=== PATIENT | female | born 1985 | race Two or more races ===

== ENCOUNTER → 2017-03-09 | Outpatient (CLI) | payer OTHER | LOC: FIMAGING 07:27 | PROVIDERS: ATTEND Advanced Practice Midwife | DX: O35.1XX0 Maternal care for (suspected) chromosomal abnormality in fetus, not applicable or unspecified (principal); Z3A.20 20 weeks gestation of pregnancy ==

== ENCOUNTER 2017-05-02 13:00 | Observation (INO) | payer OTHER ==
--- NOTE | 2017-05-02 16:10 | GHP ---
[f rep st] PREOP HISTORY AND PHYSICAL DATE OF ADMISSION: 05/02/2017 ADMITTING DIAGNOSIS: Intrauterine at 28 and 3/7 weeks gestation with decreased movem ent. HISTORY OF PRESENT ILLNESS: Sherin is a 32-year-old, 1, para 0, at 28 and 3/7 weeks gestation wh o presented to Labor and Delivery because of concerns for decreased movement. She started coun ting movements today and only has felt 1 this morning and was concerned. She denies leakage of fluid , vaginal bleeding, cramping, or any other issues. On presentation, heart tones were in the 14 0s and reactive, moderate variability, appropriate for gestational age. She has no contractions. Jose high has no other complaints. No other significant risk factors. Patient began feeling movem ent after she has eaten and had p.o. hydration. monitoring has been reassuring. I am ordering an obstetrical ultrasound to check position and ROSALINO. If everything is reassuring, patient merle l be discharged home with instructions of how to perform kick counts [facility] /[id number]/MODL
== END 2017-05-02 16:42 | disposition home or self-care (01) ==
LOC: FLD 13:00
PROVIDERS: ADMIT Obstetrics & Gynecology; ATTEND Obstetrics & Gynecology
DX: O36.8130 Decreased fetal movements, third trimester, not applicable or unspecified (principal); Z3A.28 28 weeks gestation of pregnancy
CPT/HCPCS: 76815; G0378

== ENCOUNTER 2017-07-19 21:36 | Observation (INO) | payer OTHER ==
[2017-07-19] MEDS ORDERED: TERBUTALINE SULFATE 1 MG/ML VIAL SC PRN (22:20)
== END 2017-07-19 22:50 | disposition home or self-care (01) ==
LOC: FLD 21:36
PROVIDERS: ADMIT Obstetrics & Gynecology; ATTEND Obstetrics & Gynecology
DX: O47.1 False labor at or after 37 completed weeks of gestation (principal); Z3A.39 39 weeks gestation of pregnancy
CPT/HCPCS: 59025; G0378

== ENCOUNTER 2017-07-20 13:40 | Inpatient (IN) | payer OTHER ==
[2017-07-20] MEDS ORDERED: EPSOM SALT 454 GM TP PRN (14:31)
[2017-07-20] MEDS ORDERED: TERBUTALINE SULFATE 1 MG/ML VIAL IV PRN (14:31)
[2017-07-20] MEDS ORDERED: IBUPROFEN 600 MG TAB PO PRN (14:31)
[2017-07-20] MEDS ORDERED: MISOPROSTOL 200 MCG TAB PR PRN (14:31)
[2017-07-20] MEDS ORDERED: OXYTOCIN/RINGERS LACTATE 1,000 ML IV PRN (14:31)
[2017-07-20] MEDS ORDERED: LIDOCAINE 1% 300 MG/30 ML SDV SC PRN (14:31)
[2017-07-20] MEDS ORDERED: AMPICILLIN SODIUM 2 GM in NS 100 ML IV ONE (14:31)
[2017-07-20] MEDS ORDERED: OLIVE OIL 118 ML BTL MISC PRN (14:31)
[2017-07-20 15:07] LABS: PLATELET COUNT 278 10^3/uL (150-400)
--- NOTE | 2017-07-20 15:16 | GHP ---
[f rep st] PREOP HISTORY AND PHYSICAL DATE OF ADMISSION: 07/20/2017 ADMITTING DIAGNOSIS: Intrauterine at 39-5/7 weeks' gestation in active labor. HISTORY OF PRESENT ILLNESS: The patient is a 32-year-old, 1, para 0, with a last menstrual p eriod of 10/15/2016, and an EDC of 07/22/2017, which was confirmed by a first trimester ultrasound. She has had good care at [facility] since registered at 8 weeks and has had a rela tively uncomplicated course. She began having contractions early in the morning on the every 20 minutes. They increased in frequency and intensity over the day of the . She presente d to labor and delivery in the evening of the and was found to be 1 cm dilated. She was sent ho mo with labor precautions. She attempted to rest, but was woken up from severe contraction pain at 5 o'clock this morning. They have increased in intensity and in frequency over the day, and she began having bloody show with urination. She denies leakage of fluid, has had good movement. On assessment, heart tones are in the 150s, reactive, moderate variability. She is having cont ractions every 5-6 minutes. Cervical exam was 5, 90, 0 station and is intact, and she will be admitt ed for active labor management. SIGNIFICANT RISK FACTORS: She has a history of a pituitary adenoma, and she was on Cabergol ine until her positive test. She has been followed by Endocrinology and is not currently o n medication. She had GBS bacteruria in her 1st trimester, had a negative test of care. She will ne ed antibiotics prophylactically for delivery. She is positive for a thalassemia trait. The father o f the baby was negative, and she had a positive screening for trisomy 13. She had a consul t with Maternal Medicine and underwent an amniocentesis that was negative for trisomy 13, as we ll as normal AFP and other risk factors. She has had normal level 2 ultrasound in this as well and all of her other screening tests have been negative. PAST OBSTETRICAL HISTORY: The patient has no past obstetrical history. This is her first . PAST GYNECOLOGICAL HISTORY: She had a normal menstrual triad with menarche at age 13, interval every 25-26 days, length of 7-8 days, and a sure and regular last menstrual period of 10/15/2016. She has had a history of a cervical polypectomy in 2012, which was removed in [place]. Also in 2012 she had a laparoscopy and a left ovarian cystectomy for a teratoma. Those were also performed in [place], had n o complications, and she has her normal right ovary. PAST MEDICAL HISTORY: Significant for the pituitary adenoma which was diagnosed in 2014 and was denise kianna for. She has a history of H pylori which she was also treated for that. PAST SURGICAL HISTORY: A breast fibroma removed in 2008, laparoscopic ovarian cystectomy secondary t o teratoma in 2012, and a cervical polyp in 2012. She is also a thalassemia carrier. ALLERGIES: She has no known drug allergies. MEDICATIONS: Include vitamins with DHA and vitamin D. LABORATORY DATA: In this she is O positive, antibody negative, RPR nonreactive, rubella im mune, hepatitis negative, HIV negative. was positive for alpha thalassemia. No other defi cits. Pap was negative. Gonorrhea and chlamydia negative. Urine culture was initially positive for group B strep. Occult test of cure was negative. Her 1-hour GTT was 106. GBS was positive and her amniocentesis was negative for any chromosomal abnormalities. SOCIAL HISTORY: She is . She lives with her . They are from [place]. She is a stay-at -home mom. He is a research food scientist at the [employer]. She denies tobacco, alcohol, and drug use. FAMILY HISTORY: Father has cardiac arrhythmias. Father and brother have ankylosing spondylitis. PHYSICAL EXAMINATION: VITAL SIGNS: Currently, she is afebrile. Vital signs are stable. hear t tones are in the 140s to 150s, average variability, moderate variability category 1. She is contra cting every 5-6 minutes. Again, cervix was 5, 90%, 0, and she is intact. Baby is cephalic. ASSESSMENT AND PLAN: A 32-year-old, 1, para 0, at 39-5/7 weeks' gestation in active labor. The patient will be admitted. She will be started on ampicillin for group B streptococcus prophylaxi s. The patient will have active labor management. She may desire an epidural for pain control. /[id number]/MODL
[2017-07-20] MEDS ORDERED: TERBUTALINE SULFATE 1 MG/ML VIAL ONE (15:29)
[2017-07-20] MEDS ORDERED: AMMONIA AROMATIC 1 EACH AMP IH ONE (15:29)
[2017-07-20] MEDS ORDERED: OLIVE OIL 118 ML BTL ONE (15:29)
[2017-07-20] MEDS ORDERED: LIDOCAINE 1% 300 MG/30 ML SDV ONE (15:29)
[2017-07-20] MEDS ORDERED: MISOPROSTOL 200 MCG TAB ONE (15:30)
[2017-07-20] MEDS ORDERED: OXYTOCIN 10 UNIT/ML VIAL ONE (15:30)
[2017-07-20] MEDS: LR 1,000 ML IV PRN ×2 (15:30→17:55)
[2017-07-20] MEDS ORDERED: AMPICILLIN SODIUM 1 GM in NS 50 ML IV SCH (15:33)
[2017-07-20] MEDS ORDERED: BUPIVACAINE 0.25% 30 ML SDV ONE (15:54)
[2017-07-20] MEDS ORDERED: PHENYLEPHRINE HCL 100 MCG/ML SYR ONE ×2 (15:54→23:56)
[2017-07-20] MEDS ORDERED: NARCOTIC DRIP BAG-TOTAL ALL TYPES IV PRN (16:32)
[2017-07-20] MEDS ORDERED: FENT2MCG/ML&BUP0.1% 1 EA, fentaNYL 200 MCG, BUPIVACAINE 0.5% 20 ML in NS 100 ML IV SCH (16:32)
[2017-07-20] MEDS ORDERED: ONDANSETRON 4 MG/2 ML VIAL IVP PRN ×2 (16:44→23:19)
--- NOTE | 2017-07-20 16:50 | PREANESOB ---
Obstetric Pre-Anesthesia Info - General Info Proposed Procedure: Labor and delivery. : 1 Para: 0 RAMONITA: 07/22/17 Gestational Age: 39 week(s) and 5 day(s) - Info Status: Full Term Monitors: External FHR Baseline (bpm): 130 FHR Pattern: Reassuring - Labor Status Cervical Dilation per last OB SVE: 5 PIH: No Indications for Labor Analgesia: Pain Control Labor Epidural: Proposed Anesthesia ROS: S/P general anesthesia and abdominal surgery for teratoma, pituitary adenoma treated medically. Allergies/Adverse Reactions: Allergy/AdvReac Type Severity Reaction Status Date / Time No Known Allergies Allergy Unverified 08/27/15 10:08 Home Medications: Medication Instructions Recorded Cabergoline 08/27/15 Visit Medications: Generic Name Dose Route Start Last Admin Trade Name Freq PRN Reason Stop Dose Admin Lactated Ringer's 1,000 mls @ 0 mls/hr 07/20/17 14:31 Lr IV 07/21/17 14:30 PRN PRN SEE PROTOCOL CONDITIONS Protocol Per Protocol Oxytocin/Lactated Ringer's 1,000 mls @ 125 mls/hr 07/20/17 14:31 Pitocin 20 Units/Lr (Premix) IV PRN PRN Post bleeding Ampicillin Sodium 1 gm/ Sodium 50 mls @ 100 mls/hr 07/20/17 18:30 Chloride IV 08/19/17 18:29 Q4H RUMA Fentanyl/Bupivacaine HCl 1 ea/ 100 mls @ mls/hr 07/20/17 16:32 Fentanyl 200 mcg/ Bupivacaine IV 07/30/17 16:31 HCl 20 ml/ Sodium Chloride AD RUMA As Directed Ibuprofen 600 mg 07/20/17 14:31 Motrin PO ONCE PRN post , pain Lidocaine HCl 300 mg 07/20/17 14:31 Lidocaine Hcl 1% SC 01/16/18 14:30 ONCE PRN episiotomy Magnesium Sulfate 454 gm 07/20/17 14:31 Epsom Salt TP 01/16/18 14:30 Q1H PRN perineal discomfort Miscellaneous Medication 1 ea 07/20/17 16:32 Narcotic Drip-Total All Types IV 01/16/18 16:31 PRN PRN Pyxis removal Misoprostol 800 - 1,000 mcg 07/20/17 14:31 Cytotec IN ONCE PRN Vaginal Atony/Bleeding [place] Oil 118 ml 07/20/17 14:31 Sweet Oil MISC 01/16/18 14:30 ONCE PRN perineal massage Terbutaline Sulfate 0.25 mg 07/20/17 14:31 Brethine IV 01/16/18 14:30 ONCE PRN Tachysystole Discontinued Medications Generic Name Dose Route Start Last Admin Trade Name Devang PRN Reason Stop Dose Admin Ammonia (Aromatic Spirit) Confirm 07/20/17 15:29 Ammonia Aromatic Administered 07/20/17 15:30 Dose 1 each IH .STK-MED ONE Bupivacaine HCl Confirm 07/20/17 15:54 Sensorcaine 0.25% Sdv Administered 07/20/17 15:55 Dose 30 ml .ROUTE .STK-MED ONE Ampicillin Sodium 2 gm/ Sodium 110 mls @ 220 mls/hr 07/20/17 14:31 Chloride IV 07/20/17 15:00 ONCE ONE Protocol Lidocaine HCl Confirm 07/20/17 15:29 Lidocaine Hcl 1% Administered 07/20/17 15:30 Dose 300 mg .ROUTE .STK-MED ONE Misoprostol Confirm 07/20/17 15:30 Cytotec Administered 07/20/17 15:31 Dose 1,000 mcg .ROUTE .STK-MED ONE [place] Oil Confirm 07/20/17 15:29 Sweet Oil Administered 07/20/17 15:30 Dose 118 ml .ROUTE .STK-MED ONE Oxytocin Confirm 07/20/17 15:30 Pitocin Administered 07/20/17 15:31 Dose 40 unit .ROUTE .STK-MED ONE Phenylephrine HCl Confirm 07/20/17 15:54 Neosynephrine Administered 07/20/17 15:55 Dose 1,000 mcg .ROUTE .STK-MED ONE Terbutaline Sulfate Confirm 07/20/17 15:29 Brethine Administered 07/20/17 15:30 Dose 1 mg .ROUTE .STK-MED ONE - Anesthesia History Response to Local Anesthetics: Normal Anesthesia & Operative History: No Prior Problems Family Anesthesia History: Negative - Social History Substance Use/Abuse: Denies - Vital Signs Blood Pressure: 128/79 Heart Rate: 83 Height/Weight (Nursing): Height 160.02 cm Weight 79.832 kg - Focused Exam Neck exam: FROM Mallampati Score: Class 2 Mouth exam: normal dental/mouth exam Pulmonary: no respiratory distress Cardiovascular: regular rate and rhythym Labs: 07/20/17 14:45 Patient ABO/Rh O POSITIVE 07/20/17 14:45 - Plan Anesthetic Plan: JONATHON Consent Signed and on Chart: Yes Patient/Guardian Understands and Agrees to Plan: Yes Urgent/Emergent Case: Gilda llanes completed preop but documented later for safe timely pt care
[2017-07-20] MEDS ORDERED: fentaNYL 2MCG/ML/BUP 0.1% RTU 100 ML EP SCH (17:00)
[2017-07-20] MEDS ORDERED: LR 500 ML IV SCH (17:00)
--- NOTE | 2017-07-20 17:08 | POSTANESTH ---
Post Anesthetic Evaluation Cardiovascular Status: Normal, Stable Respiratory Status: Normal, Stable, Similar to Pre-op Cond. Level of Consciousness/Mental Status: Can Participate in Eval Pain Control: Adequate, Prn Tx Ordered Nausea/Vomiting Control: Adequate, Prn Tx Ordered Complications Possibly Related to Anesthesia: None Noted
[2017-07-20] MEDS ORDERED: AMPICILLIN SODIUM 1 GM in STERILE WATER INJ 15 ML IV SCH (18:30)
--- NOTE | 2017-07-20 19:18 | OBPROG ---
Labor Progress Note Assessment/Plan: Assessment: 32 y/o @ 39 5/7 weeks in labor Plan: Good cervical progression, now AROM will assess contraction pattern and augment PRN. status is overall reassuring. 07/20/17 19:18 Subjective/Intrapartum Course: 07/20/17 19:13 Pt is feeling much better now with her epidural. She denies pelvic pressure or painful contractions. Objective: 07/20/17 14:45 07/20/17 17:25 Patient ABO/Rh O POSITIVE 07/20/17 14:45 Uric Acid 5.5 mg/dL (2.5-6.8) 07/20/17 17:25 Total Bilirubin 0.5 mg/dL (0.1-1.4) 07/20/17 17:25 Conjugated Bilirubin 0.1 mg/dL (0.0-0.5) 07/20/17 17:25 Unconjugated Bilirubin 0.4 mg/dL (0.0-1.1) 07/20/17 17:25 AST 22 IU/L (14-46) 07/20/17 17:25 ALT 33 IU/L (9-52) 07/20/17 17:25 Lactate Dehydrogenase 430 IU/L (313-618) 07/20/17 17:25 Temp Pulse Resp BP Pulse Ox 83 128/79 H 07/20/17 17:07 07/20/17 17:07 - SVE Dilation (cm): 7 Effacement (%): 90 Station: 0 Membranes: AROM Amniotic Fluid Color: Meconium Stained (light) - Contraction Pattern Assessment Current Contraction Pattern: Regular (Q 3-5) - FHR Assessment Black FHR (bpm): 140 FHR Pattern Variability: Moderate FHR Category: 2 (1 variable seen after AROM, overall reassuring) - Procedures Non-surgical Procedures: Amniotomy - AP Antepartum Course: 07/20/17 19:15 History of a pituitary adenoma was on Cabergoline prior to . + GBS bacturia, + alpha thalasemia trait FOB neg, Innonatal + trisomy 13, amnio negative and normal Level II ultrasound Oxytocin Orders Assessment - Pre-Induction/Augmentation Assessment Gestational Age: 39 week(s) and 5 day(s) ICD10 Worksheet Patient Problems: Problems Problem Status Onset Decreased movement Acute
[2017-07-20] MEDS: AMPICILLIN SODIUM 1 GM in NS 50 ML IV SCH (19:31)
[2017-07-20] MEDS ORDERED: LR 500 ML IV PRN (21:25)
--- NOTE | 2017-07-20 21:25 | OBPROG ---
Labor Progress Note Assessment/Plan: Assessment: 32 y/o @ 39 5/7 weeks in labor Plan: Overall baby has good variability and accelerations, however episodes of variable decelerations make the tracing category II. We are giving IVF and O2 and monitoring closely. Slow cervical change now, will begin small dose pitocin augmentation if tolerated by baby. 07/20/17 19:18 07/20/17 21:22 Subjective/Intrapartum Course: 07/20/17 19:13 Pt is feeling much better now with her epidural. She denies pelvic pressure or painful contractions. 07/20/17 21:20 Pt remains comfortable. Objective: 07/20/17 14:45 07/20/17 17:25 Patient ABO/Rh O POSITIVE 07/20/17 14:45 Uric Acid 5.5 mg/dL (2.5-6.8) 07/20/17 17:25 Total Bilirubin 0.5 mg/dL (0.1-1.4) 07/20/17 17:25 Conjugated Bilirubin 0.1 mg/dL (0.0-0.5) 07/20/17 17:25 Unconjugated Bilirubin 0.4 mg/dL (0.0-1.1) 07/20/17 17:25 AST 22 IU/L (14-46) 07/20/17 17:25 ALT 33 IU/L (9-52) 07/20/17 17:25 Lactate Dehydrogenase 430 IU/L (313-618) 07/20/17 17:25 Temp Pulse Resp BP Pulse Ox 83 128/79 H 07/20/17 17:07 07/20/17 17:07 - SVE Dilation (cm): 8 Effacement (%): 90 Station: 0 Membranes: AROM Amniotic Fluid Color: Meconium Stained (light) - Contraction Pattern Assessment Current Contraction Pattern: Regular (Q 2-3) - FHR Assessment Black FHR (bpm): 140 FHR Pattern Variability: Moderate FHR Category: 2 (variable decelerations, responding to position change and accelerations with scalp stim) - Procedures Non-surgical Procedures: Amniotomy - AP Antepartum Course: 07/20/17 19:15 History of a pituitary adenoma was on Cabergoline prior to . + GBS bacturia, + alpha thalasemia trait FOB neg, Innonatal + trisomy 13, amnio negative and normal Level II ultrasound Oxytocin Orders Assessment - Pre-Induction/Augmentation Assessment Gestational Age: 39 week(s) and 5 day(s) ICD10 Worksheet Patient Problems: Problems Problem Status Onset Decreased movement Acute
[2017-07-20] MEDS ORDERED: OXYTOCIN/RINGERS LACTATE 500 ML IV SCH (21:30)
--- NOTE | 2017-07-20 22:47 | OBPROG ---
Labor Progress Note Assessment/Plan: Assessment: 32 y/o @ 39 5/7 weeks in labor Plan: After a few moments of monitoring with IUPC and FSE in place. Her contractions were obviously not adequate to cause cervical change, but the variable decelerations were severe and demonstrating a loss of variability. I decided to proceed with c section delivery due to intolerance of labor. Patient and her are in agreement. Consent signed and all questions answered. 07/20/17 19:18 07/20/17 21:22 07/20/17 23:03 Subjective/Intrapartum Course: 07/20/17 19:13 Pt is feeling much better now with her epidural. She denies pelvic pressure or painful contractions. 07/20/17 21:20 Pt remains comfortable. 07/20/17 22:44 Pt is feeling some contractions and is fatigued from moving around but overall comfortable with contractions. Objective: 07/20/17 14:45 07/20/17 17:25 Patient ABO/Rh O POSITIVE 07/20/17 14:45 Uric Acid 5.5 mg/dL (2.5-6.8) 07/20/17 17:25 Total Bilirubin 0.5 mg/dL (0.1-1.4) 07/20/17 17:25 Conjugated Bilirubin 0.1 mg/dL (0.0-0.5) 07/20/17 17:25 Unconjugated Bilirubin 0.4 mg/dL (0.0-1.1) 07/20/17 17:25 AST 22 IU/L (14-46) 07/20/17 17:25 ALT 33 IU/L (9-52) 07/20/17 17:25 Lactate Dehydrogenase 430 IU/L (313-618) 07/20/17 17:25 Temp Pulse Resp BP Pulse Ox 83 128/79 H 07/20/17 17:07 07/20/17 17:07 - SVE Dilation (cm): 7 Effacement (%): 90 Station: 0 Membranes: AROM Amniotic Fluid Color: Meconium Stained (light) - Contraction Pattern Assessment Current Contraction Pattern: Regular (Q 2-3) - FHR Assessment Black FHR (bpm): 140 FHR Pattern Variability: Moderate FHR Category: 2 (variable decelerations with contractions, some with deep into the 60S) - Procedures Non-surgical Procedures: Amniotomy, FSE, IUPC - AP Antepartum Course: 07/20/17 19:15 History of a pituitary adenoma was on Cabergoline prior to . + GBS bacturia, + alpha thalasemia trait FOB neg, Innonatal + trisomy 13, amnio negative and normal Level II ultrasound Oxytocin Orders Assessment - Pre-Induction/Augmentation Assessment Gestational Age: 39 week(s) and 5 day(s) ICD10 Worksheet Patient Problems: Problems Problem Status Onset Decreased movement Acute
[2017-07-20] MEDS ORDERED: LIDOCAINE 2% 5 ML SDV ONE (23:13)
[2017-07-20] MEDS ORDERED: LIDO/EPI 2% **for epidural** 20 ML SDV ONE (23:13)
[2017-07-20] MEDS ORDERED: ceFAZolin 2 GM in D5W 100 ML IV ONE (23:15)
[2017-07-20] MEDS ORDERED: OXYCODONE/APAP 5/325 TAB PO PRN (23:19)
[2017-07-20] MEDS ORDERED: METOCLOPRAMIDE 10 MG/2 ML VIAL IVP PRN (23:19)
[2017-07-20] MEDS ORDERED: fentaNYL 100 MCG/2 ML INJ IVP PRN (23:19)
[2017-07-20] MEDS ORDERED: HYDROmorphONE/DILAUDID 1 MG/ML INJ IVP PRN (23:19)
--- NOTE | 2017-07-20 23:19 | PREANESOB ---
Obstetric Pre-Anesthesia Info - General Info Proposed Procedure: : 1 Para: 0 RAMONITA: 07/22/17 Gestational Age: 39 week(s) and 5 day(s) - Info Status: Full Term FHR Baseline (bpm): 130 - Labor Status Cervical Dilation per last OB SVE: 7 Station per last OB SVE: 0 Amniotic Fluid Color: Meconium Stained (light) Indications for Current Section: Non-reas. Status Labor Epidural: Yes Anesthesia Allergies/Adverse Reactions: Allergy/AdvReac Type Severity Reaction Status Date / Time No Known Allergies Allergy Unverified 08/27/15 10:08 Home Medications: Medication Instructions Recorded Cabergoline 08/27/15 Visit Medications: Generic Name Dose Route Start Last Admin Trade Name Freq PRN Reason Stop Dose Admin Diphenhydramine HCl 25 - 50 mg 07/20/17 16:44 Benadryl Injection IVP 01/16/18 16:43 Q6HRS PRN Itching Lactated Ringer's 1,000 mls @ 0 mls/hr 07/20/17 14:31 07/20/17 17:55 Lr IV 07/21/17 14:30 1,000 mls PRN PRN Administration SEE PROTOCOL CONDITIONS Protocol Per Protocol Oxytocin/Lactated Ringer's 1,000 mls @ 125 mls/hr 07/20/17 14:31 Pitocin 20 Units/Lr (Premix) IV PRN PRN Post bleeding Ampicillin Sodium 1 gm/ Sodium 50 mls @ 100 mls/hr 07/20/17 18:30 07/20/17 19 :31 Chloride IV 08/19/17 18:29 50 mls Q4H RUMA Administration Fentanyl/Bupivacaine HCl 1 ea/ 100 mls @ mls/hr 07/20/17 16:32 Fentanyl 200 mcg/ Bupivacaine IV 07/30/17 16:31 HCl 20 ml/ Sodium Chloride AD RUMA Protocol As Directed Lactated Ringer's 500 mls @ 0 mls/hr 07/20/17 17:00 Lr IV 01/16/18 16:59 CONT RUMA As Directed Lactated Ringer's 500 mls @ 500 mls/hr 07/20/17 21:25 Lr IV 07/21/17 21:25 PRN PRN Maternal Hypotension Oxytocin/Lactated Ringer's 500 mls @ 0 mls/hr 07/20/17 21:30 07/20/17 21:40 Pitocin 30 Units/Lr (Premix) IV 01/16/18 21:29 500 mls CONT RUMA Administration Protocol Per Protocol Cefazolin Sodium 2 gm/ 100 mls @ 200 mls/hr 07/20/17 23:15 Dextrose IV 07/20/17 23:44 ONCALL ONE Ibuprofen 600 mg 07/20/17 14:31 Motrin PO ONCE PRN post , pain Lidocaine HCl 300 mg 07/20/17 14:31 Lidocaine Hcl 1% SC 01/16/18 14:30 ONCE PRN episiotomy Magnesium Sulfate 454 gm 07/20/17 14:31 Epsom Salt TP 01/16/18 14:30 Q1H PRN perineal discomfort Miscellaneous Medication 1 ea 07/20/17 16:32 Narcotic Drip-Total All Types IV 01/16/18 16:31 PRN PRN Pyxis removal Misoprostol 800 - 1,000 mcg 07/20/17 14:31 Cytotec IA ONCE PRN Vaginal Atony/Bleeding [place] Oil 118 ml 07/20/17 14:31 Sweet Oil MISC 01/16/18 14:30 ONCE PRN perineal massage Ondansetron HCl 4 mg 07/20/17 16:44 Zofran IVP 07/21/17 16:43 Q4HRS PRN Nausea/Vomiting, Can't Take PO Terbutaline Sulfate 0.25 mg 07/20/17 14:31 Brethine IV 01/16/18 14:30 ONCE PRN Tachysystole Discontinued Medications Generic Name Dose Route Start Last Admin Trade Name Yosiq PRN Reason Stop Dose Admin Ammonia (Aromatic Spirit) Confirm 07/20/17 15:29 Ammonia Aromatic Administered 07/20/17 15:30 Dose 1 each IH .STK-MED ONE Bupivacaine HCl Confirm 07/20/17 15:54 Sensorcaine 0.25% Sdv Administered 07/20/17 15:55 Dose 30 ml .ROUTE .STK-MED ONE Ampicillin Sodium 2 gm/ Sodium 110 mls @ 220 mls/hr 07/20/17 14:31 07/20/17 15:30 Chloride IV 07/20/17 15:00 110 mls ONCE ONE Administration Protocol Lidocaine HCl Confirm 07/20/17 15:29 Lidocaine Hcl 1% Administered 07/20/17 15:30 Dose 300 mg .ROUTE .STK-MED ONE Lidocaine HCl Confirm 07/20/17 23:13 Xylocaine-Mpf 2% Vial Administered 07/20/17 23:14 Dose 10 ml .ROUTE .STK-MED ONE Lidocaine/Epinephrine Confirm 07/20/17 23:13 Xylocaine 2%-Epi 1:200,000 Administered 07/20/17 23:14 Dose 20 ml .ROUTE .STK-MED ONE Misoprostol Confirm 07/20/17 15:30 Cytotec Administered 07/20/17 15:31 Dose 1,000 mcg .ROUTE .STK-MED ONE [place] Oil Confirm 07/20/17 15:29 Sweet Oil Administered 07/20/17 15:30 Dose 118 ml .ROUTE .STK-MED ONE Oxytocin Confirm 07/20/17 15:30 Pitocin Administered 07/20/17 15:31 Dose 40 unit .ROUTE .STK-MED ONE Phenylephrine HCl Confirm 07/20/17 15:54 Neosynephrine Administered 07/20/17 15:55 Dose 1,000 mcg .ROUTE .STK-MED ONE Terbutaline Sulfate Confirm 07/20/17 15:29 Brethine Administered 07/20/17 15:30 Dose 1 mg .ROUTE .STK-MED ONE - Vital Signs Latest Vital Signs (Nursing): Temp Pulse Resp BP Pulse Ox 38.2 C 80 16 107/54 L 99 07/20/17 22:56 07/20/17 22:56 07/20/17 22:56 07/20/17 22:56 07/20/17 22:56 Height/Weight (Nursing): Height 160.02 cm Weight 79.832 kg - Focused Exam Neck exam: FROM Mallampati Score: Class 2 Mouth exam: normal dental/mouth exam Pulmonary: clear to auscultation Cardiovascular: regular rate and rhythym Labs: 07/20/17 14:45 07/20/17 17:25 Patient ABO/Rh O POSITIVE 07/20/17 14:45 Uric Acid 5.5 mg/dL (2.5-6.8) 07/20/17 17:25 Total Bilirubin 0.5 mg/dL (0.1-1.4) 07/20/17 17:25 Conjugated Bilirubin 0.1 mg/dL (0.0-0.5) 07/20/17 17:25 Unconjugated Bilirubin 0.4 mg/dL (0.0-1.1) 07/20/17 17:25 AST 22 IU/L (14-46) 07/20/17 17:25 ALT 33 IU/L (9-52) 07/20/17 17:25 Lactate Dehydrogenase 430 IU/L (313-618) 07/20/17 17:25 - Plan Consent Signed and on Chart: Yes Patient/Guardian Understands and Agrees to Plan: Yes
[2017-07-20] MEDS ORDERED: ONDANSETRON 4 MG/2 ML VIAL ONE (23:32)
[2017-07-20] MEDS ORDERED: METOCLOPRAMIDE 10 MG/2 ML VIAL ONE (23:32)
[2017-07-20] MEDS ORDERED: OXYTOCIN 100 UNITS/10 ML VIAL ONE (23:33)
--- NOTE | 2017-07-21 00:56 | OBDEL ---
Info Type: Primary Presentation at Delivery: Vertex L&D Analgesia/Anesthesia Type: Epidural GBS+: Yes Antibiotic Used for + GBS: Ampicillin Intrapartum Medications: Generic Name Dose Route Start Last Admin Trade Name Freq PRN Reason Stop Dose Admin Lactated Ringer's 1,000 mls @ 0 mls/hr 07/20/17 14:31 07/20/17 17:55 Lr IV 07/21/17 14:30 1,000 mls PRN PRN Administration SEE PROTOCOL CONDITIONS Protocol Per Protocol Ampicillin Sodium 1 gm/ Sodium 50 mls @ 100 mls/hr 07/20/17 18:30 07/20/17 19 :31 Chloride IV 08/19/17 18:29 50 mls Q4H RUMA Administration Oxytocin/Lactated Ringer's 500 mls @ 0 mls/hr 07/20/17 21:30 07/20/17 21:40 Pitocin 30 Units/Lr (Premix) IV 01/16/18 21:29 500 mls CONT RUMA Administration Protocol Per Protocol Discontinued Medications Generic Name Dose Route Start Last Admin Trade Name Freq PRN Reason Stop Dose Admin Ampicillin Sodium 2 gm/ Sodium 110 mls @ 220 mls/hr 07/20/17 14:31 07/20/17 15:30 Chloride IV 07/20/17 15:00 110 mls ONCE ONE Administration Protocol Cefazolin Sodium 2 gm/ 100 mls @ 200 mls/hr 07/20/17 23:15 07/20/17 23:16 Dextrose IV 07/20/17 23:44 100 mls ONCALL ONE Administration - Care Provider Turner In/ICE CREAM DIPPER: Negar Wilson - Hospital Course Intrapartum: 07/20/17 19:13 Pt is feeling much better now with her epidural. She denies pelvic pressure or painful contractions. 07/20/17 21:20 Pt remains comfortable. 07/20/17 22:44 Pt is feeling some contractions and is fatigued from moving around but overall comfortable with contractions. Indications for Delivery: Spontaneous Labor Vaginal Delivery - Labor and Delivery Onset of Contractions Date: 07/20/17 Onset of Contractions Time: 05:00 Amniotic Fluid Color: Meconium Stained (light) Non-surgical Procedures: Amniotomy, FSE, IUPC Operative Report - Delivery Pre-op Diagnoses: IUP @ 39 5/7 weeks, intolerance to labor Post-op Diagnoses: same History of Prior Section: No Number of Prior Sections: 0 Nulliparous Prior to Delivery: Yes Indications for Current Section: Non-reas. Status Procedure: Unscheduled, Low Transverse Surgeon: Ya Henderson Chiller Tender: Leanna Rodrigues Anesthesiologist: Florentin Weaver Complications: None Findings: normal uterus, tubes and ovaries IV Fluid (ml): 2,000 EBL: 800 [place] Data RAMONITA: 07/22/17 Gestational Age: 39 week(s) and 6 day(s) Black Delivery Date: 07/20/17 Delivery Time: 23:52 Sex of Infant: Male [place] Weight (gm): 3373.593 g Score (1 Min): 8 Score (5 Min): 9 ICD10 Worksheet Patient Problems: Problems Problem Status Onset intolerance to labor, delivered, current hospitalization Acute Decreased movement Acute - ICD10 Problem Qualifiers (1) intolerance to labor, delivered, current hospitalization
[2017-07-21] MEDS ORDERED: PROMETHAZINE HCL 25 MG/ML INJ IVP PRN (00:57)
[2017-07-21] MEDS ORDERED: DOCUSATE SODIUM 100 MG CAP PO PRN (00:57)
[2017-07-21] MEDS ORDERED: HYDROCODONE/APAP 5/325 TAB PO PRN (00:57)
[2017-07-21] MEDS ORDERED: SIMETHICONE 80 MG TAB CHEW PO PRN (00:57)
--- NOTE | 2017-07-21 00:57 | POSTANESTH ---
Post Anesthetic Evaluation Cardiovascular Status: Normal, Stable Respiratory Status: Normal, Stable Level of Consciousness/Mental Status: Alert and Oriented Pain Control: Adequate, Prn Tx Ordered Nausea/Vomiting Control: Adequate, Prn Tx Ordered Complications Possibly Related to Anesthesia: None Noted
[2017-07-21] MEDS ORDERED: MAGNESIUM HYDROXIDE 30 ML UDCUP PO PRN (00:59)
[2017-07-21] MEDS ORDERED: LACTULOSE 20 GM/30 ML UDCUP PO PRN (00:59)
[2017-07-21] MEDS ORDERED: BISACODYL 10 MG SUPP PR PRN (00:59)
[2017-07-21] MEDS ORDERED: POLYETHYLENE GLYCOL 3350 17 GM PKT PO PRN (00:59)
[2017-07-21] MEDS ORDERED: ACETAMINOPHEN 500 MG TAB PO PRN (01:34)
[2017-07-21] MEDS: AMPICILLIN SODIUM 1 GM in NS 50 ML IV SCH (01:39)
[2017-07-21] MEDS ORDERED: ACETAMINOPHEN 325 MG TAB ONE (01:41)
--- NOTE | 2017-07-21 02:03 | GOP ---
[f rep st] OPERATIVE REPORT DATE OF OPERATION: SURGEON: Ya Henderson MD COMPUTING TUTOR: CECE Reid, certified nurse first press operator. ANESTHESIA: Epidural anesthesia. ANESTHESIOLOGIST: Florentin Weaver DO. PREOPERATIVE DIAGNOSIS: Intrauterine at 39 and 5/7 weeks' gestation, in active labor with intolerance to labor. POSTOPERATIVE DIAGNOSIS: Intrauterine at 39 and 5/7 weeks' gestation, in active labor with intolerance to labor. PROCEDURE PERFORMED: Primary low transverse section. FINDINGS: Viable male; Apgars of 8 and 9; weight of 7 pounds, 7 ounces. ESTIMATED BLOOD LOSS: Under 800 cc. INDICATIONS: The patient is a 32-year-old, 1, para 0, with a last menstrual period of 2016, EDC of 07/22/2017, who presented on the in active labor with active labor contractions. I nitially, her cervix was 5 cm, 90%, -2 with a bulging bag. Patient was admitted, received ampicillin for GBS prophylaxis, and had an epidural for pain control. She had artificial rupture of membranes for light meconium. She progressed to 8 cm, 90%, and 0 station. Fetus began having variable deceler ations with contractions and some with late component, continued to have good variability and spontan eous accelerations. Patient was started on Pitocin to augment contractions to attempt to get her to fully dilated. Baby continued to have worsening decelerations and was losing variability at the nadi r of the contraction. We tried multiple position changes, oxygen, and IV fluids for resuscitated eff orts, and fetus continued to have deep variable decels. I placed an IUPC and FSE, and contractions r evealed were mild, not adequate. The fetus was showing signs of intolerance, so we decided to procee d with primary low transverse section for intolerance to labor. Patient was consented for the procedure. She understood the risks and benefits, the risks including bleeding, infection, damage to internal organs, uterus, tubes, ovaries, bowel, bladder, nerves, blood vessels, ureters, ri sk of injury, risk for blood transfusion, and hysterectomy. She understood these risks and joe efits and agreed to proceed. DESCRIPTION OF PROCEDURE: Patient was taken to the directional bore operator operating room where her epidural was do sed and found to be adequate. Ryan catheter was previously placed in her bladder. She was prepped and draped in the dorsal supine position with a leftward tilt. After WHO time-out was performed and adequate anesthesia was assured, a transverse skin incision was made with a scalpel. The incision wa s carried down to the underlying layer of fascia with the Bovie. Fascia was incised in midline, and the fascial incision was extended laterally with Parnell scissors. Superior aspect of the fascial incis ion was grasped with Angelian clamps, elevated, and the rectus muscles were dissected off sharply. Inf erior aspect of the fascial incision was grasped with the Angelina clamps, elevated, and the rectus mus cles were dissected off sharply. Rectus muscles were in the midline. Peritoneum was enter ed bluntly. Peritoneal incision was extended superiorly and inferiorly with good visualization of th e bladder. Bladder blade was inserted, and the vesicouterine peritoneum was grasped with pickups and entered sharply with Metzenbaum scissors. The incision was extended laterally, and bladder flap was created digitally. The uterus was incised with a knife. There was thin meconium upon entry to the uterine cavity. The incision was extended laterally with bandage scissors. The infant was delivered atraumatically. There was a double nuchal cord that was reduced, and the infant was delivered atrau matically. We waited 1 minute for delayed cord clamping. The cord was clamped and cut. The infant was handed off to the waiting nurse practitioner. Cord bloods were sent. Placenta was feliciano wilman manually. The uterus was exteriorized, cleared of all clots and debris. The uterine incision wa s repaired with 0 Vicryl in a running locked fashion. A 2nd imbricating layer of suture was performe d with 0 Vicryl, and good hemostasis was assured. After performance of the 2nd layer, it was noted t hat the vesicouterine peritoneum was incorporated into the hysterotomy repair, and this was dissected off carefully with Metzenbaum scissors to allow the bladder to be free. There were small areas of b leeding along that dissection plane. This was sutured with 2-0 Vicryl and Bovie cautery. Uterus was returned to the abdomen. Gutters were clear all clots and debris. Reinspection of the uterine inci anatoly again assured hemostasis. Avitene powder was placed along the hysterotomy and along the bladder incision for hemostasis. The rectus muscles were approximated with 2-0 Vicryl. The fascia was clos ed with #1 Vicryl in a running fashion. Subcutaneous layer was closed with 2-0 Vicryl, and the skin was closed with 4-0 Vicryl in a subcuticular fashion. Patient tolerated the procedure well. Sponge, lap, needle, and instrument counts were correct x2. Patient went to the recovery room in good condi tion. IV FLUIDS: 2000 cc. URINE OUTPUT: 400 cc. /[id number]/MODL
[2017-07-21] MEDS: KETOROLAC 30 MG/1 ML SDV IVP SCH ×4 (02:34→20:45)
[2017-07-21] MEDS: ceFAZolin 2 GM/DEXTROSE 100 ML IV SCH ×2 (06:06→12:06)
[2017-07-21] MEDS: LR 1,000 ML IV PRN (06:07)
--- NOTE | 2017-07-21 10:29 | OBPP ---
Progress Note Assessment/Plan: Assessment: 1) s/p 1 LTCS secondary to intolerance to labor POD # 0.5 - pt is stable 2) Anemia Plan: Continue routine post-op care Encourage ambulation HCT this am 29 (from 35), will start Bifera BID Cont Ancef q6 hr x 24 hrs, febrile in labor - afebrile this am Good UO, clark to be removed in am Dressing was removed secondary to serosang drainage and a new dressing applied; will cont to monitor Cont SCDs while in bed 07/21/17 10:35 Subjective/ Course: 07/21/17 10:31 Pt seen and examined. Doing well, no complaints. Pain is well controlled. She is dangling on the bedside, not OOB yet, leann regular diet, clark in place, no flatus yet. Mod lochia. Working on BF, going well so far. Denies any f/c/n/v/CP or SOB. Objective: 07/21/17 06:23 07/20/17 17:25 Patient ABO/Rh O POSITIVE 07/20/17 14:45 Uric Acid 5.5 mg/dL (2.5-6.8) 07/20/17 17:25 Total Bilirubin 0.5 mg/dL (0.1-1.4) 07/20/17 17:25 Conjugated Bilirubin 0.1 mg/dL (0.0-0.5) 07/20/17 17:25 Unconjugated Bilirubin 0.4 mg/dL (0.0-1.1) 07/20/17 17:25 AST 22 IU/L (14-46) 07/20/17 17:25 ALT 33 IU/L (9-52) 07/20/17 17:25 Lactate Dehydrogenase 430 IU/L (313-618) 07/20/17 17:25 Temp Pulse Resp BP Pulse Ox 38.7 C H 80 37 H 117/81 H 100 07/21/17 01:46 07/20/17 22:56 07/21/17 02:20 07/21/17 02:15 07/21/17 02:20 Uterine Position/Fundal Height: Umbilicus -1 Uterine Tone: Firm Physical Exam - Physical Exam General Appearance: WD/WN, alert, no apparent distress Respiratory: lungs clear, normal breath sounds Cardiac/Chest: regular rate, rhythm Abdomen: normal bowel sounds, non-tender, soft, flatus (none), incision (C/I; some serosang drainage noted; steri strips noted), dressing (filled with serosang blood, it was removed and a new dressing applied) Extremities: non-tender, normal inspection (with SCDs) Skin: warm/dry, pallor Neuro/Psych: alert, normal mood/affect, oriented x 3
[2017-07-21] MEDS: SENNOSIDES/DOCUSATE SODIUM TAB PO SCH ×2 (15:16→20:45)
[2017-07-21] MEDS: IRON POLYSAC/IRON HEME 28 MG TAB PO SCH (20:45)
[2017-07-22] MEDS: IBUPROFEN 600 MG TAB PO PRN ×4 (02:45→22:40)
[2017-07-22] MEDS: IRON POLYSAC/IRON HEME 28 MG TAB PO SCH ×2 (08:49→19:59)
[2017-07-22] MEDS: SENNOSIDES/DOCUSATE SODIUM TAB PO SCH ×2 (08:52→19:59)
--- NOTE | 2017-07-22 10:41 | OBPP ---
Progress Note Assessment/Plan: Assessment: [id number] s/p primary c/s for intolerance POD#1 anemia Plan: routine post op care cont PO iron ambulate PRN cont /work with anticipate d/c home in 2-3 days 07/22/17 11:19 Subjective/ Course: 07/21/17 10:31 Pt seen and examined. Doing well, no complaints. Pain is well controlled. She is dangling on the bedside, not OOB yet, leann regular diet, clark in place, no flatus yet. Mod lochia. Working on BF, going well so far. Denies any f/c/n/v/CP or SOB. 07/22/17 10:35 Pt doing well. She denies any pain. She is voiding without difficulty. She is - working with . She reports min bleeding. She does state her legs are really swollen- but denies any pain in her legs. is at BS and supportive. 07/22/17 11:31 Objective: 07/21/17 06:23 07/20/17 17:25 Patient ABO/Rh O POSITIVE 07/20/17 14:45 Uric Acid 5.5 mg/dL (2.5-6.8) 07/20/17 17:25 Total Bilirubin 0.5 mg/dL (0.1-1.4) 07/20/17 17:25 Conjugated Bilirubin 0.1 mg/dL (0.0-0.5) 07/20/17 17:25 Unconjugated Bilirubin 0.4 mg/dL (0.0-1.1) 07/20/17 17:25 AST 22 IU/L (14-46) 07/20/17 17:25 ALT 33 IU/L (9-52) 07/20/17 17:25 Lactate Dehydrogenase 430 IU/L (313-618) 07/20/17 17:25 Temp Pulse Resp BP Pulse Ox 37.2 C 100 18 107/59 L 95 07/22/17 08:15 07/22/17 08:15 07/22/17 08:15 07/22/17 08:15 07/22/17 08:15 Uterine Position/Fundal Height: Umbilicus -1, Midline Uterine Tone: Firm Physical Exam - Physical Exam General Appearance: WD/WN, alert, no apparent distress Neck: supple Abdomen: non-tender, soft, incision (C/D/I) Extremities: non-tender, pedal edema (2+) Skin: normal color, warm/dry Neuro/Psych: alert, normal mood/affect, oriented x 3
--- NOTE | 2017-07-22 11:54 | POSTANESTH ---
Post Anesthetic Evaluation Cardiovascular Status: Normal, Stable Respiratory Status: Normal, Stable Level of Consciousness/Mental Status: Alert and Oriented Pain Control: Adequate, Prn Tx Ordered Nausea/Vomiting Control: Adequate, Prn Tx Ordered Complications Possibly Related to Anesthesia: None Noted (DURAMORPH post-op, patient doing well no complaints)
[2017-07-23] MEDS: IBUPROFEN 600 MG TAB PO PRN ×4 (04:41→23:48)
[2017-07-23] MEDS: SENNOSIDES/DOCUSATE SODIUM TAB PO SCH ×2 (07:51→20:31)
[2017-07-23] MEDS: IRON POLYSAC/IRON HEME 28 MG TAB PO SCH ×2 (07:51→20:31)
--- NOTE | 2017-07-23 13:25 | OBPP ---
Progress Note Assessment/Plan: Assessment: [id number] s/p primary c/s for intolerance POD#2 anemia Plan: routine post op care cont PO iron ambulate PRN cont /work with anticipate d/c home in tomorrow Subjective/ Course: 07/21/17 10:31 Pt seen and examined. Doing well, no complaints. Pain is well controlled. She is dangling on the bedside, not OOB yet, leann regular diet, clark in place, no flatus yet. Mod lochia. Working on BF, going well so far. Denies any f/c/n/v/CP or SOB. 07/22/17 10:35 Pt doing well. She denies any pain. She is voiding without difficulty. She is - working with . She reports min bleeding. She does state her legs are really swollen- but denies any pain in her legs. is at BS and supportive. 07/22/17 11:31 07/23/17 17:07 Doing great this AM - slept well overnight. BF going better. Waiting on results of baby's genoveva tests. Does think she'd like to stay until tomorrow. Pain well controlled. Objective: 07/21/17 06:23 07/20/17 17:25 Patient ABO/Rh O POSITIVE 07/20/17 14:45 Uric Acid 5.5 mg/dL (2.5-6.8) 07/20/17 17:25 Total Bilirubin 0.5 mg/dL (0.1-1.4) 07/20/17 17:25 Conjugated Bilirubin 0.1 mg/dL (0.0-0.5) 07/20/17 17:25 Unconjugated Bilirubin 0.4 mg/dL (0.0-1.1) 07/20/17 17:25 AST 22 IU/L (14-46) 07/20/17 17:25 ALT 33 IU/L (9-52) 07/20/17 17:25 Lactate Dehydrogenase 430 IU/L (313-618) 07/20/17 17:25 Temp Pulse Resp BP Pulse Ox 36.3 C 80 16 103/57 L 97 07/23/17 08:00 07/23/17 08:00 07/23/17 08:00 07/23/17 08:00 07/23/17 08:00 Uterine Position/Fundal Height: At Umbilicus Uterine Tone: Firm (Incision CDI, no s/sx of infection)
[2017-07-24] MEDS: IBUPROFEN 600 MG TAB PO PRN ×2 (05:56→15:59)
--- NOTE | 2017-07-24 10:32 | OBGCSDC ---
General Delivery Information - General Info : 1 Para: 1 Abortions: 0 Type: Primary L&D Analgesia/Anesthesia Type: Epidural Admission Date: 07/20/17 Labs: Patient ABO/Rh O POSITIVE 07/20/17 14:45 Hct 26.9 % (38.0-47.0) L 07/21/17 06:23 - Hospital Course Antepartum: 07/20/17 19:15 History of a pituitary adenoma was on Cabergoline prior to . + GBS bacturia, + alpha thalasemia trait FOB neg, Innonatal + trisomy 13, amnio negative and normal Level II ultrasound Intrapartum: 07/20/17 19:13 Pt is feeling much better now with her epidural. She denies pelvic pressure or painful contractions. 07/20/17 21:20 Pt remains comfortable. 07/20/17 22:44 Pt is feeling some contractions and is fatigued from moving around but overall comfortable with contractions. : 07/21/17 10:31 Pt seen and examined. Doing well, no complaints. Pain is well controlled. She is dangling on the bedside, not OOB yet, leann regular diet, clark in place, no flatus yet. Mod lochia. Working on BF, going well so far. Denies any f/c/n/v/CP or SOB. 07/22/17 10:35 Pt doing well. She denies any pain. She is voiding without difficulty. She is - working with . She reports min bleeding. She does state her legs are really swollen- but denies any pain in her legs. is at BS and supportive. 07/22/17 11:31 07/23/17 17:07 Doing great this AM - slept well overnight. BF going better. Waiting on results of baby's genoveva tests. Does think she'd like to stay until tomorrow. Pain well controlled. 07/24/17 10:30 S) Pt doing well, reports min pain and bleeding. she is ambulating and voiding without difficulty. She is . She desires discharge home today. O) VSS, afebrile constitutional: WNWF, A&Ox3 HEENT: normocephalic, atraumatic, supple Heart: RRR, No murmur Chest: CTA-B Abdomen: Soft, nontender Uterus: Firm at U-2 Lochia: Minimal rubra Perineum: Intact, healing well Extremities: 1+ pedal edema, and negative Vianney's sign Neuro: Grossly normal A) [id number] S/P primary c/s POD#3 anemia P) Discharge home today Continue cont PO iron Pelvic rest x6wks Discussed danger signs (infection, preeclampsia, depression, heavy bleeding, etc ) RTO in 2/4/6 weeks 07/24/17 10:31 Vaginal - Diagnosis Amniotic Fluid Color: Meconium Stained (light) - Procedures Non-surgical Procedures: Amniotomy, FSE, IUPC - Delivery Providers Surgeon: Ya Henderson Database Marketing Specialist: Leanna Rodrigues Anesthesiologist: Florentin Weaver - Delivery Number of Prior Sections: 0 Indications for Current Section: Non-reas. Status Non-surgical Procedures: Amniotomy, FSE, IUPC Surgical Procedures: Unscheduled, Low Transverse Intra-op Complications: None EBL: [address] [place] Data RAMONITA: 07/22/17 Gestational Age: 40 week(s) and 2 day(s) Black Delivery Date: 07/20/17 Delivery Time: 23:52 Sex of : Male [place] Weight (gm): 3382 kg Score (1 Min): 8 Score (5 Min): 9
[2017-07-24] MEDS: SENNOSIDES/DOCUSATE SODIUM TAB PO SCH (10:37)
[2017-07-24] MEDS: IRON POLYSAC/IRON HEME 28 MG TAB PO SCH (10:37)
[2017-07-24 14:55] VITALS: BP 119/76
== END 2017-07-24 18:30 | disposition home or self-care (01) | DRG 775 ==
LOC: OBSVTOIN 13:40 → FLD 13:40 → FOB 07-23 17:12
PROVIDERS: ADMIT Obstetrics & Gynecology; ATTEND Obstetrics & Gynecology
PROC: 10907ZC Drainage of Amniotic Fluid, Therapeutic from Products of Conception, Via Natural or Artificial Opening (ICD-10-PCS; principal; 2017-07-20)
PROC: 10E0XZZ Delivery of Products of Conception, External Approach (ICD-10-PCS; principal; 2017-07-20)
DX: O76 Abnormality in fetal heart rate and rhythm complicating labor and delivery (principal); O99.824 Streptococcus B carrier state complicating childbirth; O77.0 Labor and delivery complicated by meconium in amniotic fluid; Z86.011 Personal history of benign neoplasm of the brain; O90.81 Anemia of the puerperium; Z3A.39 39 weeks gestation of pregnancy; Z37.0 Single live birth
CPT/HCPCS: J0290; J0690; J1885; J2270; J2370; J2405; J2590; J2765; J3010; J3105